=== PATIENT | female | born 1970 | race Caucasian/White ===

== ENCOUNTER 2021-03-01 07:49 | Outpatient (REF) | payer MEDICAID, SELFPAY ==
[2021-03-01 11:35] LABS: Alanine Aminotransferase 19 U/L (0-31); Albumin Level 4.5 g/dL (3.5-5.0); Alkaline Phosphatase 96 U/L (39-117); Anion Gap 13 (12-20); Aspartate Amino Transferase 21 U/L (5-31); Bilirubin Total 0.3 mg/dL (0.0-1.0); Blood Urea Nitrogen 14 mg/dL (9-16); Calcium 10.1 mg/dL (8.4-10.2); Carbon Dioxide 27 mmol/L (22-29); Chloride 104 mmol/L (96-108); Estimated Glomerular Filt Rate > 60; Glucose Random 187 mg/dL (60-115); Lipase 22 U/L (8-78); Potassium 4.2 mmol/L (3.3-5.1); Sodium 140 mmol/L (135-145); Total Protein 7.7 g/dL (6.5-8.0)
[2021-03-01 11:46] LABS: Hematocrit 41.7 % (37-47); Hemoglobin 13.8 g/dl (12.0-16.0); Mean Corpuscular HGB Conc 33.1 g/dl (31.0-35.0); Mean Corpuscular Volume 93.7 fL (80-98); Mean Platelet Volume 11.5 fL (9.4-12.3); Platelet Count 260 X10*3/uL (160-400); Red Blood Count 4.45 X10*6/uL (4.20-5.50); Red Cell Distribution Width 12.5 % (11.0-16.0); White Blood Count 4.4 X10*3/uL (4.8-10.8)
[2021-03-04 14:56] LABS: Transglutaminase Ab IgG 2 U/mL; Transglutaminase IgA 1 U/mL
== END 2021-03-01 07:50 | disposition home or self-care (01) ==
LOC: HO.LAB 07:49
PROVIDERS: PCP Family Medicine; Visit Provider Nurse Practitioner Family
DX: R19.7 Diarrhea, unspecified (principal); R14.0 Abdominal distension (gaseous); R10.9 Unspecified abdominal pain; R12 Heartburn; K21.9 Gastro-esophageal reflux disease without esophagitis; Z12.11 Encounter for screening for malignant neoplasm of colon
CPT/HCPCS: 36415; 80053; 83516; 83690; 85027; 99202

== ENCOUNTER 2021-03-03 15:48 | Outpatient (REF) | payer MEDICAID, SELFPAY | END 2021-03-03 15:49 | disposition home or self-care (01) | LOC: HO.LNP 15:48 | PROVIDERS: Visit Provider Nurse Practitioner Family | DX: K21.9 Gastro-esophageal reflux disease without esophagitis (principal); Z11.0 Encounter for screening for intestinal infectious diseases | CPT/HCPCS: 87338 ==

== ENCOUNTER → 2021-04-01 08:40 | Outpatient (BNVA) | payer MEDICAID, SELFPAY | PROVIDERS: Visit Provider Nurse Practitioner Family ==

== ENCOUNTER → 2023-04-16 10:49 | Outpatient (BNVA) | payer OTHER, SELFPAY | PROVIDERS: PCP Family Medicine; Visit Provider Nurse Practitioner Family | DX: K21.9 Gastro-esophageal reflux disease without esophagitis (principal); K59.1 Functional diarrhea; R10.11 Right upper quadrant pain; R14.0 Abdominal distension (gaseous) | CPT/HCPCS: 99212 ==

== ENCOUNTER 2023-05-22 15:34 | Outpatient (AMB) | payer OTHER, SELFPAY ==
--- NOTE | 2023-05-22 15:44 | MHC.OFFVIS ---
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 Patient will stop pantoprazole in start Nexium 40 mg in the morning and will start on famotidine 40 mg at bedtime. Will send patient for upper endoscopy in near future Diarrhea Discussed with patient importance of bulking her stools. Avoiding dietary triggers. Low FODMAP diet discussed with patient. List of food to avoid as well as list of food to recommended given to her. Abdominal pain Patient reports right upper quadrant pain. Negative Padgett sign. Hyperactive bowels in the right upper quadrant. Questioning if patient has gas trapping pains. Discussed with her low FODMAP diet. Patient will also need to move her bowels better. She does have loose stools, however appears to be constipated. Will bulk her stools with fiber and help her evacuate her bowels completely hopefully with Senokot. Patient will call our office if she will continue to be constipated. Postprandial abdominal bloating Postprandial abdominal bloating most likely related to her being constipated and diet. Low FODMAP diet discussed mentioned above. I will see patient in 4 weeks, sooner on as needed basis. Patient is agreeable to this plan and verbalizes understanding of instructions. She was given the opportunity to ask questions and all questions answered. ? Thank you for allowing me to participate in her care Plan Medications New esomeprazole magnesium (Nexium) 40 mg PO DAILY 90 caps 5RF K21.9 methylcellulose (laxative) (Citrucel) take it with full glass of water 500 mg PO DAILY 90 tabs 2RF K59.00 sennosides (Natural Senna Laxative) 17.2 mg (2 x 8.6 mg) PO BEDTIME 60 tabs 3RF constipation K59.00 famotidine 40 mg PO BEDTIME 30 tabs 3RF K21.9 Discontinued famotidine (Pepcid) Discontinued Reason: Doctor's Order 20 mg PO DAILY 30 tabs 3RF K21.9 TODAY'S VISIT: Patient is here today for follow-up. Patient reports that she is taking Nexium in the morning and famotidine 40 mg at nighttime and her symptoms of acid reflux are suppressed. Patient reports occasional postprandial epigastric discomfort depending on which she. Patient denies dyspepsia, dysphagia or odynophagia. Denies melena, hematochezia, unintentional weight loss or ribbon like stools. Patient reports occasional postprandial moves stools depending on the food that she eats. Patient has a history of cholecystectomy at age of 17. Colonoscopy in 2019 as well as upper endoscopy. Patient will be due to go for colonoscopy soon. Patient denies melena, hematochezia, unintentional weight loss or ribbon like stools. Patient reports that despite her having frequent loose stools she does not feel like she empties her bowels completely. [facility] Social History Household Members: Children Alcohol intake: never Patient Tobacco Use Status: Never used Tobacco Current occupational status: employed Review of Systems Const Denies weight gain and Denies weight loss ENT Reports no additional complaints, Denies dysphagia and Denies odynophagia Card Reports no additional complaints Resp Reports no additional complaints GI Denies abdominal pain, Denies belching, Denies melena, Reports bloating, Reports constipation, Denies dysphagia, Denies excessive flatus, Denies dyspepsia, Denies heartburn, Denies diarrhea, Reports loose stools, Denies nausea, Denies odynophagia and Denies vomiting Reports no additional complaints Musc Reports no additional complaints Neuro Reports no additional complaints Psych Reports no additional complaints Endo Reports no additional complaints Physical Exam Vital Signs: Last Vital Signs Pulse 74 05/22/23 15:46 BP 102/61 05/22/23 15:46 BMI result Body Mass Index 38.9 Const General: healthy appearing, no acute distress and well developed Nutritional Appearance: obese Orientation/consciousness: patient oriented x3 HEENT Head: Yes normal to inspection, Yes normocephalic and Yes atraumatic Face and sinus: Yes normal facial exam Mouth: Normal oral and palatal mucosa present Throat: Yes posterior oropharynx normal, Yes tonsils normal and Yes uvula midline Eyes General: appearance normal, both eyes and all related structures Neck Neck: Yes normal visual inspection, Yes full ROM and Yes trachea midline Thyroid: Thyroid normal Resp Effort & Inspection: normal respiratory effort, able to speak in complete sentences, no tracheal deviation and symmetric chest movement Auscultation: clear to auscultation bilaterally Cardio Rate: regular rate Heart sounds: S1 normal heart sound present and S2 normal heart sound present GI Inspection: Yes normal to inspection and No distended Palpation (GI): Soft to palpation, not firm, nontender and No hepatosplenomegaly present Auscultation: normal bowel sounds General: Yes no CVA tenderness Back/Spine/Pelvis Back: no CVA tenderness Skin General skin exam: elasticity normal, turgor normal and dry skin Neuro General: patient oriented x3 Psych Appearance: grossly normal Mental Status: mental status grossly normal Speech and movement: Normal speech and movement present Assessment & Plan Assessment & Plan (1) GERD (gastroesophageal reflux disease): Code(s): K21.9 - Gastro-esophageal reflux disease without esophagitis Qualifiers: Esophagitis presence: esophagitis presence not specified Qualified Code(s): K21.9 - Gastro-esophageal reflux disease without esophagitis Plan: Continue Nexium and famotidine. Discussed with patient the importance of avoiding dietary triggers and late night snacking. Staying upright minimal 3 hours after meals discussed with patient (2) Abdominal pain: Code(s): R10.9 - Unspecified abdominal pain Qualifiers: Abdominal location: right upper quadrant Qualified Code(s): R10.11 - Right upper quadrant pain Plan: Patient continues with occasional right upper quadrant pain. Negative Padgett sign. Patient thinks it could be muscular. Patient will pay closer attention. If she continues we will send her for a HIDA scan to evaluate for CBD patency. Patient reports the pain not related to food (3) Postprandial abdominal bloating: Code(s): R14.0 - Abdominal distension (gaseous) Plan: Postprandial abdominal bloating. Patient continues with constipation. Patient will try to follow low FODMAP diet closely. List of food recommended as well as list of food to avoid given to patient. If patient continues we will rule out pancreatic insufficiency. I will see patient after upper endoscopy, sooner on as needed basis. Patient is agreeable to this plan and verbalizes understanding of instructions. She was given the opportunity to ask questions and all questions answered. Thank you for allowing me to participate care Orders: Orders Liver Panel 05/22/23 R10.9 - Unspecified abdominal pain Medications: Refilled sucralfate 1 g PO DAILY 30 tabs 3RF R19.7 - Diarrhea, unspecified Discontinued methylcellulose (laxative) take it with full glass of water Discontinued Reason: Doctor's Order 500 mg PO DAILY 90 tabs 2RF K59.00 - Constipation, unspecified Coding Level of Care Code Est Pt Level 4 (18720) Diagnoses Gastroesophageal reflux disease, unspecified whether esophagitis present K21.9 Esophagitis presence: esophagitis presence not specified Right upper quadrant abdominal pain R10.11 Abdominal location: right upper quadrant Postprandial abdominal bloating R14.0 Time Spent (min) 35 Comment 20 minutes spent with patient and additional 15 minutes spent reviewing her records
[2023-05-22 15:46] VITALS: BP 102/61; PULSE 74; BMI 38.9
== END 2023-05-22 16:31 | disposition home or self-care (01) ==
PROVIDERS: PCP Family Medicine; Visit Provider Nurse Practitioner Family
DX: K21.9 Gastro-esophageal reflux disease without esophagitis (principal); R10.11 Right upper quadrant pain; R14.0 Abdominal distension (gaseous)
CPT/HCPCS: 99214

== ENCOUNTER 2023-05-22 15:34 | Outpatient (REF) | payer OTHER, SELFPAY ==
[2023-05-22 17:21] LABS: Alanine Aminotransferase 17 U/L (0-31); Alkaline Phosphatase 92 U/L (39-117); Aspartate Amino Transferase 26 U/L (5-31); Bilirubin Direct < 0.2 mg/dL (0.0-0.5); Bilirubin Total 0.2 mg/dL (0.0-1.0); Total Protein 7.4 g/dL (6.5-8.0)
== END 2023-05-22 15:35 | disposition home or self-care (01) ==
LOC: HO.LAB 15:34
PROVIDERS: PCP Family Medicine; Visit Provider Nurse Practitioner Family
DX: K21.9 Gastro-esophageal reflux disease without esophagitis (principal); R10.11 Right upper quadrant pain; R14.0 Abdominal distension (gaseous)
CPT/HCPCS: 36415; 80076; 99212